=== PATIENT | male | born 2000 | race Caucasian/White ===

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

== ENCOUNTER → 2022-09-23 | Outpatient (CLI) | payer BC, SELFPAY | END | disposition home or self-care (01) | PROVIDERS: PCP Pediatrics; Referring Provider Pediatrics; Visit Provider Pediatrics | DX: Z02.83 Encounter for blood-alcohol and blood-drug test (principal) ==

== ENCOUNTER 2023-04-05 09:28 | Emergency (ER) | payer BC, SELFPAY ==
[2023-04-05 09:28] VITALS: BP 190/102; PULSE 140; RESP 22; TEMP 36.2; O2SAT 100; BMI 32.5
--- NOTE | 2023-04-05 10:03 | RAD_ITS ---
HISTORY: chest pain. TECHNIQUE: XR Chest 1 View. COMPARISON: None. FINDINGS: CARDIOMEDIASTINAL BORDERS: Cardiac silhouette within normal limits in size. Mediastinal contour unremarkable. LUNGS: Radiographically clear. PLEURA: No pleural effusion or pneumothorax seen. OSSEOUS STRUCTURES: Unremarkable. RAD/Chest 1 View (Portable) IMPRESSION: No acute cardiopulmonary process identified. Electronically Signed: Shazia Govea MD at 10:41 EST ,
--- NOTE | 2023-04-05 10:03 | EKG12_ITS ---
Test Reason : CP Blood Pressure : / mmHG Vent. Rate : 139 BPM Atrial Rate : 139 BPM P-R Int : 124 ms QRS Dur : 088 ms QT Int : 298 ms P-R-T Axes : 042 047 -11 degrees QTc Int : 453 ms Sinus tachycardia Cannot rule out Inferior infarct , age undetermined Abnormal ECG Confirmed by YOSHI ZELAYA, HERSON ([id number]), scientific publications editor JENNIE GLASER ([id number]) on 04/13/2023 6:44:02 AM Referred By: AR Confirmed By:HENRY BELLE MD
--- NOTE | 2023-04-05 10:03 | ED.VIS.CHEST ---
HPI History of Present Illness Chief Complaint: Chest Pain Narrative Narrative: 23-year-old male who denies significant past medical history presents with chest pain and burning along with heart palpitations that he has had after snorting cocaine at 730 this morning, roughly 2 and half hours ago. He states that this is the first time that he has used cocaine, but he did snorted more than usual. He also smoked marijuana. He denies any fevers or chills, no cough, but states he has had burning sensation across his chest and a fast, pounding heart rate. His heart rate is high and he feels like his heart is going to pound out of his chest. He denies any leg swelling. No exacerbating or alleviating factors. No nausea or vomiting. No shortness of breath. PFSH PFSH Allergy/AdvReac Type Severity Reaction Status Date / Time prednisone AdvReac Severe Other Verified 04/05/23 09:48 Social History Smoking Status: Never smoker ROS ROS ED ROS Narrative Constitutional: No fever, no chills. HEENT: No sore throat. No neck pain. No loss of vision. No rhinorrhea. Cardiovascular: Positive chest pain. Positive palpitations. No pedal edema. Respiratory: No cough, no shortness of breath. Abdominal: No abdominal pain. No nausea. No vomiting. Genitourinary: No dysuria. No hematuria. Musculoskeletal: No myalgias. No arthralgias. Neurologic: No headaches. No dizziness. No lightheadedness. Skin: No rash. No change in color. Psychiatric: No depression. No anxiety. EXAM Physical Exam Narrative Exam Narrative: Afebrile. Vital signs noted. Positive tachycardia. No murmurs rubs or gallops appreciated. Lungs clear to auscultation bilaterally. Abdomen soft nontender. Normoactive bowel sounds. Neurological examination nonfocal and nonlateralizing. Const Vital Signs: 04/05/23 09:28 04/05/23 09:28 04/05/23 12:48 Temperature 97.1 F L Temperature Source Temporal Pulse Rate 140 H Respiratory Rate 22 H Respiratory Effort Normal Non-Labored Blood Pressure 190/102 H 146/86 H Blood Pressure Mean 131 106 Pulse Ox 100 Oxygen Delivery Method Room Air MDM MDM MDM Narrative Medical decision making narrative: Concern is for dysrhythmia such as atrial fibrillation versus sinus tachycardia from cocaine use. I do feel he is having more cocaine chest pain. Also the differential diagnosis would be pneumothorax after snorting cocaine. He does have elevated blood pressure and tachycardia after taking a stimulant. EKG was obtained and interpreted by myself independently as sinus tachycardia at 139 bpm without ectopy or acute ST changes. No STEMI. I do feel he needs serial troponins and basic laboratory work. Initially he will be given aspirin, but I do feel that Ativan 1 mg intravenously for cocaine chest pain is indicated. Upon repeat examination at approximately 1310, after he had received Lopressor, his heart rate ranges from 80 bpm up to 100 bpm. He is not as hypertensive as well. I reviewed his laboratory work and he has normal white count of 7.8, hemoglobin 14.3, hematocrit 41.5, platelet count normal at 255. His electrolyte panel is grossly unremarkable with a sodium normal at 136, chloride 106, BUN of 18 and creatinine 1.04. High-sensitivity troponin is 4. Repeated 2 hours is 5. I reviewed and interpreted his chest x-ray in 1 view independently and see no evidence of pneumothorax or pneumonia. I do not feel antibiotics are indicated. At this point in time, he was told to avoid use of stimulants especially cocaine. I feel he be discharged safely home and that he does not require observation at this time. He feels improved. Disposition is discharged home in stable condition. History & Record Review Discussion w/independent historian: Patient Lab Data Attestation: I reviewed the patient's lab results. Labs: Laboratory Results - last 24 hr 04/05/23 04/05/23 10:10 11:25 WBC 7.8 RBC 4.79 Hgb 14.3 Hct 41.5 MCV 86.6 MCH 29.9 MCHC 34.5 RDW Std Deviation 37.3 RDW Coeff of Ophelia 11.8 Plt Count 255 MPV 9.1 Immature Gran % (Auto) 0.300 Neut % (Auto) 74.4 H Lymph % (Auto) 20.1 [place] % (Auto) 4.4 Eos % (Auto) 0.3 Baso % (Auto) 0.5 Absolute Neuts (auto) 5.8 Absolute Lymphs (auto) 1.56 Nucleated RBC % 0 Sodium 136 Potassium 3.6 Chloride 106 Carbon Dioxide 24.0 Anion Gap 6 BUN 18 Creatinine 1.04 Estim Creat Clear Calc 104.16 Est GFR (MDRD) Af Amer 115 Est GFR (MDRD) Non-Af 95 BUN/Creatinine Ratio 17.3 Glucose 149 H Calcium 9.0 Troponin I High Sens 4 5 Radiography Diagnostic Testing: Clinical Impression(s) from Imaging Studies Chest X-Ray 04/05/23 10:03 IMPRESSION: No acute cardiopulmonary process identified. Electronically Signed: Shazia Govea MD at 10:41 EST , Discharge Plan Triage Chief Complaint: Chest Pain ED Provider: Walter Burdick Dx/Rx/DC Orders Clinical Impression: Palpitations, Cocaine abuse, Chest pain Instructions: Cocaine: Understanding Its Effects, ED Chest Pain, Uncertain Cause, ED Palpitations Primary Care Provider: Jair Longoria Referrals: Jair Longoria MD [Primary Care Provider] - 3-5 Days if not improving Activity Restrictions/Additional Instructions: Follow-up with your primary care provider in 3 to 5 days. Return with new or worsening symptoms. Avoid excessive stimulant use. Disposition Disposition: Home, Self Care
--- NOTE | 2023-04-05 10:04 | ED.RN ---
NO OLD EKG
[2023-04-05] MEDS: Aspirin 81 MG TAB.CHEW 324 MG PO (10:14)
[2023-04-05] MEDS: LORazepam 2 MG/ML Syringe 1 MG IV (10:14)
[2023-04-05] MEDS: 0.9% Normal Saline (1000mL) 1,000 ML 1000 ML IV (10:14)
[2023-04-05 10:22] LABS: Absolute Lymphocyte Count 1.56 X10^3/uL (0.83-4.51); Absolute Neutrophil Count 5.8 X10^3/uL (2.0-7.7); Basophil# 0.04 X10^3/uL; Basophil% 0.5 % (0-1); Eosinophil# 0.02 X10^3/uL; Eosinophils% 0.3 % (0-5); Hematocrit 41.5 % (40-54); Hemoglobin 14.3 g/dL (13.0-16.5); Lymphocyte # 1.56 X10^3/ul (0.83-4.51); Lymphocyte % 20.1 % (19-41); Mean Corp Hgb Conc 34.5 g/dL (32-36); Mean Corpuscular Hgb 29.9 pg (27.0-32.0); Mean Corpuscular Volume 86.6 fL (80-94); Mean Platelet Vol. 9.1 fl (6.2-12.0); Monocyte# 0.34 X10^3/uL; Monocyte% 4.4 % (0-10); NRBC Flagged by Analyzer 0 % (0-5); Neutrophil # 5.77 X10^3/uL (2.7-7.7); Neutrophil % 74.4 % (47-70); Platelet Count 255 K/mm3 (150-450); RBC Distribution Width CV 11.8 % (11.6-14.6); RBC Distribution Width SD 37.3 fl (35.1-43.9); Red Blood Count 4.79 M/mm3 (4.6-6.2); White Blood Count 7.8 K/mm3 (4.4-11.0)
[2023-04-05 10:35] LABS: Anion Gap 6 (5-15); BUN 18 mg/dL (7-18); BUN/Creat Ratio 17.3 RATIO (10-20); Chloride 106 mmol/L (98-107); Creatinine, Serum 1.04 mg/dL (0.70-1.30); EST Glomerular Filtration Rate 95 mL/min (>60); Est Glom Filt Rate - Afr Amer 115 mL/min (>60); Estimated Creatinine Clearance 104.16 ml/min; Glucose 149 mg/dL (74-106); Potassium 3.6 mmol/L (3.5-5.1); Sodium Level 136 mmol/L (136-145); Troponin-I HS (w/2H Reflex) 4 pg/mL (3.0-78.0)
[2023-04-05 12:14] LABS: Reflex Troponin-HS? (from REC) Y
[2023-04-05] MEDS: Metoprolol Tartrate 5 MG/5 ML Vial IV (12:46)
[2023-04-05 12:48] VITALS: BP 146/86
[2023-04-05 12:51] LABS: Troponin-I HS 5 pg/mL (3.0-78.0)
[2023-04-05 13:14] VITALS: PULSE 96
== END 2023-04-05 13:26 | disposition home or self-care (01) ==
PROVIDERS: Emergency Provider Emergency Medicine; PCP Pediatrics; Visit Provider Emergency Medicine
DX: R07.9 Chest pain, unspecified (principal); F14.10 Cocaine abuse, uncomplicated; R00.2 Palpitations
CPT/HCPCS: 71045; 80048; 84484; 85025; 93005; 99284; J7030; A4216